=== PATIENT | male | born 1935 | race Caucasian/White ===

== ENCOUNTER 2023-10-25 05:30 | Day surgery (SDC) | payer OTHER ==
[2023-10-19 15:09] LABS: URINE APPEARANCE Clear; URINE BILIRRUBIN Negative (NEGATIVE); URINE BLOOD Small; URINE COLOR Yellow; URINE GLUCOSE Negative (NEGATIVE); URINE LEUKOCYTE Negative; URINE NITRATE Negative; URINE PROTEIN Negative (NEGATIVE); URINE UROBILINOGEN 0.2 E.U./dl
[2023-10-19 15:10] LABS: URINE BACTERIA 37.7 uL (0.0-1933); URINE EPITHELIAL CELLS 5.8 uL (0.0-38.8); URINE RBC 13.2 uL (0.0-20.8); URINE WBC 12.3 uL (0.0-23.2)
[~2023-10-25] VITALS: Ht 172.7 cm; Wt 86.2 kg
[~2023-10-25 05:30] MED LIST: ATORVASTATIN CA10 MG PO; CLONAZEPAM1 MG; CYMBALTA20 MG; LASIX20 MG PO; LOTREL; LOTREL 10-20 M1 EACH PO; PANTOPRAZOLE SO40 MG PO; PROSCAR5 MG PO; TAMS0.4C PO
[2023-10-25] MEDS ORDERED: GENTAMICIN SULFATE 40 MG/ML VIAL IV ONE (09:15)
== END 2023-10-25 13:10 | disposition home or self-care (01) ==
LOC: CIR.AMB 05:30
PROVIDERS: ATTEND Urology
DX: C67.9 Malignant neoplasm of bladder, unspecified (principal); Z88.5 Allergy status to narcotic agent; I10 Essential (primary) hypertension

== ENCOUNTER 2023-10-25 17:41 | Inpatient (IN) | payer OTHER ==
[~2023-10-25] VITALS: Ht 172.7 cm; Wt 86.2 kg
--- NOTE | 2023-10-25 18:26 | NUR ---
PTE ALERTA Y ORIENTADO X3 EL CUAL AL MOMENTO SE ENCUENTRA EN COMPANIA DE FAMILIAR LOS CUALES REFIERE QUE PTE FUE OPERADO EN EL MELONIE DE HOY DE ARABELLA REMOCION DE TUMORES MALIGNOS EN VEGIGA. AL MOMENTO PTE REFIERE TENER MUCHO DOLOR Y SE ENUENTRA CON LEG BAG. AL MOMENTO FAMILIARES REFIEREN QUE DR. ALVAREZ HAMMOND LO ESTA ESPERANDO.
[2023-10-25] MEDS ORDERED: CEFTRIAXONE SODIUM 2,000 MG in 0.9 % SODIUM CHLORIDE 100 ML IV SCH (19:01)
[2023-10-25] MEDS ORDERED: FAMOTIDINE/PF 20 MG in 0.9 % SODIUM CHLORIDE 8 ML IV PUSH SCH (19:01)
[2023-10-25] MEDS ORDERED: ONDANSETRON HCL 4 MG in 0.9 % SODIUM CHLORIDE 50 ML IV PRN (19:15)
[2023-10-25] MEDS ORDERED: 0.9 % SODIUM CHLORIDE 1,000 ML IV SCH (19:15)
[2023-10-25] MEDS ORDERED: ACETAMINOPHEN 500 MG GEL..CAP PO PRN (19:15)
[2023-10-25] MEDS ORDERED: ENALAPRILAT DIHYDRATE 1.25 MG/ML VIAL IV PRN (19:15)
--- NOTE | 2023-10-25 19:16 | NUR ---
SE TOMMAN MUESTRAS DE LAB Y SE CANALIZA BAJO MEDIDAS ASEPTICAS
[2023-10-25 19:22] LABS: HEMATOCRIT 42.1 % (39.0-48.0); HEMOGLOBIN 13.9 g/dL (13-16.00); MEAN CELL VOLUME 86.3 fL (80.0-100.00); MEAN CORPUSCULAR HEMOGLOBIN 28.4 pg (27.00-32.0); MEAN CORPUSCULAR HGB CONC 32.9 g/dl (32.0-36.0); PLATELET COUNT 215 K/uL (150-450); RED BLOOD COUNT 4.88 M/uL (4.00-6.00); RED CELL DISTRIBUTION WIDTH 14.7 % (11.5-14.5)
[2023-10-25 19:37] LABS: ERYTHROCYTE SEDIMENTATION RATE 32 mm/hr
[2023-10-25 19:43] LABS: BILIRUBIN TOTAL 1.35 mg/dL (0.3-1.2); CALCIUM 8.9 mg/dL (8.5-10.1); CREATININE SERUM 2.1 mg/dL (0.70-1.30); GFR 29.89; POTASSIUM 4.34 mEq/L (3.5-5.1)
[2023-10-25 20:03] LABS: INR 1.17; PROTHROMBIN TIME 12.1 SECONDS (9.0-11.5)
[2023-10-25 21:25] LABS: URINE APPEARANCE Turbid; URINE BILIRRUBIN Small (NEGATIVE); URINE BLOOD Moderate; URINE GLUCOSE Negative (NEGATIVE); URINE LEUKOCYTE Moderate; URINE NITRATE Positive; URINE UROBILINOGEN 0.2 E.U./dl
[2023-10-25 21:28] LABS: URINE BACTERIA 12.5 uL (0.0-1933); URINE EPITHELIAL CELLS 6.1 uL (0.0-38.8); URINE RBC 1628.2 uL (0.0-20.8); URINE WBC 4.7 uL (0.0-23.2)
[2023-10-25 21:49] LABS: URINE CRYSTALS MODERATE /HPF; URINE PROTEIN 100 (NEGATIVE)
[2023-10-25 21:50] LABS: URINE COLOR DK YELLOW
[2023-10-26] MEDS ORDERED: AMLODIPINE BESYLATE 10 MG TABLET PO SCH (09:00)
[2023-10-26] MEDS ORDERED: FUROsemide 20 MG/2 ML VIAL IV SCH (09:00)
[2023-10-26] MEDS ORDERED: TAMSULOSIN HCL 0.4 MG CAP PO SCH (09:00)
[2023-10-26] MEDS ORDERED: OXYBUTYNIN CHLORIDE 5 MG TABLET PO SCH (17:00)
[2023-10-26] MEDS ORDERED: LACTULOSE 20 G/30 ML BLIST.PACK PO NR (19:45)
[2023-10-26] MEDS ORDERED: DOCUSATE CALCIUM 240 MG CAPSULE PO SCH (21:00)
[2023-10-27] MEDS ORDERED: 0.9 % SODIUM CHLORIDE 250 ML IV SCH (08:00)
[2023-10-27] MEDS ORDERED: FAMOTIDINE/PF 20 MG/2 ML VIAL ONE (08:06)
[2023-10-27] MEDS ORDERED: FUROsemide 20 MG TABLET PO SCH (09:00)
[2023-10-27 11:08] LABS: HEMATOCRIT 36.3 % (39.0-48.0); MEAN CELL VOLUME 86.7 fL (80.0-100.00); MEAN CORPUSCULAR HEMOGLOBIN 28.7 pg (27.00-32.0); MEAN CORPUSCULAR HGB CONC 33.1 g/dl (32.0-36.0); PLATELET COUNT 142 K/uL (150-450); RED BLOOD COUNT 4.19 M/uL (4.00-6.00); RED CELL DISTRIBUTION WIDTH 14.4 % (11.5-14.5)
[2023-10-27 12:13] LABS: ALBUMIN 2.4 gm/dL (3.4-5.0); CALCIUM 7.7 mg/dL (8.5-10.1); CREATININE SERUM 1.45 mg/dL (0.70-1.30); GFR 45.82; POTASSIUM 4.17 mEq/L (3.5-5.1)
[2023-10-27 12:27] LABS: PHOSPHOROUS 1.8 mg/dL (2.5-4.9)
[2023-10-27] MEDS ORDERED: NAPH,MB-DB/K PH,MBDB 1 PKT PACKET PO SCH (17:00)
[2023-10-28 12:37] LABS: MEAN CELL VOLUME 86.5 fL (80.0-100.00); MEAN CORPUSCULAR HEMOGLOBIN 28.8 pg (27.00-32.0); MEAN CORPUSCULAR HGB CONC 33.3 g/dl (32.0-36.0); PLATELET COUNT 140 K/uL (150-450); RED BLOOD COUNT 4.16 M/uL (4.00-6.00); RED CELL DISTRIBUTION WIDTH 14.7 % (11.5-14.5)
[2023-10-28 13:06] LABS: ALBUMIN 2.3 gm/dL (3.4-5.0); BILIRUBIN TOTAL 0.89 mg/dL (0.3-1.2); CALCIUM 8.1 mg/dL (8.5-10.1); CREATININE SERUM 1.07 mg/dL (0.70-1.30); GFR 65.07; GLOBULINA 3.3 G/DL (2.4-3.5); POTASSIUM 3.93 mEq/L (3.5-5.1); TOTAL PROTEIN 5.6 gm/dL (6.4-8.2)
[2023-10-28] MEDS ORDERED: FUROsemide 40 MG/4 ML VIAL IV NR (13:31)
[2023-10-28] MEDS ORDERED: AMLODIPINE BESYLATE 10 MG TABLET PO SCH (13:32)
[2023-10-28] MEDS ORDERED: hydrALAZINE HCL 20 MG VIAL IV PRN (16:15)
[2023-10-29 07:31] LABS: ALBUMIN 2.4 gm/dL (3.4-5.0); BILIRUBIN TOTAL 1.33 mg/dL (0.3-1.2); CALCIUM 8.4 mg/dL (8.5-10.1); CREATININE SERUM 0.99 mg/dL (0.70-1.30); GFR 71.18; GLOBULINA 3.4 G/DL (2.4-3.5); PHOSPHOROUS 2.2 mg/dL (2.5-4.9); POTASSIUM 4.27 mEq/L (3.5-5.1); TOTAL PROTEIN 5.8 gm/dL (6.4-8.2)
[2023-10-29] MEDS ORDERED: AMLODIPINE BESYLATE 5 MG TABLET PO SCH (09:00)
== END 2023-10-29 11:11 | disposition home or self-care (01) | DRG 863 ==
LOC: ER 17:41 → MEDJ 20:06
PROVIDERS: General Practice; Internal Medicine Nephrology; Student in an Organized Health Care Education/Training Program; ADMIT Internal Medicine; ATTEND Internal Medicine
PROC: BT43ZZZ Ultrasonography of Bilateral Kidneys (ICD-10-PCS; principal; 2023-10-26)
DX: T81.44XA Sepsis following a procedure, initial encounter (principal); N39.0 Urinary tract infection, site not specified; N17.9 Acute kidney failure, unspecified; T83.84XA Pain due to genitourinary prosthetic devices, implants and grafts, initial encounter; I12.9 Hypertensive chronic kidney disease with stage 1 through stage 4 chronic kidney disease, or unspecified chronic kidney disease; N18.9 Chronic kidney disease, unspecified; Y73.1 Therapeutic (nonsurgical) and rehabilitative gastroenterology and urology devices associated with adverse incidents

== ENCOUNTER 2024-05-01 10:22 | Emergency (ER) | payer OTHER ==
[~2024-05-01] VITALS: Ht 172.7 cm; Wt 86.2 kg
[2024-05-01] MEDS ORDERED: AMOX1TAB5 PO (10:31)
[2024-05-01] MEDS ORDERED: GUAIFENESIN/DEXTROMETHORPHAN 10ML BLIST.PACK PO ONE ×2 (12:30→12:31)
[2024-05-01 12:59] LABS: HEMATOCRIT 43.1 % (39.0-48.0); HEMOGLOBIN 14.3 g/dL (13-16.00); MEAN CELL VOLUME 86.8 fL (80.0-100.00); MEAN CORPUSCULAR HEMOGLOBIN 28.9 pg (27.00-32.0); MEAN CORPUSCULAR HGB CONC 33.3 g/dl (32.0-36.0); RED BLOOD COUNT 4.96 M/uL (4.00-6.00); RED CELL DISTRIBUTION WIDTH 15.3 % (11.5-14.5)
[2024-05-01 13:30] LABS: PLATELET COUNT 184 K/uL (150-450)
[2024-05-01 13:50] LABS: URINE APPEARANCE Clear; URINE BILIRRUBIN Negative (NEGATIVE); URINE BLOOD Negative; URINE COLOR Dark Yellow; URINE GLUCOSE Negative (NEGATIVE); URINE KETONE Trace (NEGATIVE); URINE LEUKOCYTE Negative; URINE NITRATE Negative; URINE UROBILINOGEN 0.2 E.U./dl
[2024-05-01 13:51] LABS: URINE BACTERIA 69.7 uL (0.0-1933); URINE CAST 3.82 uL (0.0-1.40); URINE EPITHELIAL CELLS 33.3 uL (0.0-38.8); URINE WBC 29.7 uL (0.0-23.2)
[2024-05-01 13:59] LABS: URINE PROTEIN 100 (NEGATIVE); URINE RBC 1.4 uL (0.0-20.8)
[2024-05-01 14:23] LABS: CALCIUM 9.1 mg/dL (8.5-10.1); CREATININE SERUM 1.64 mg/dL (0.70-1.30); GFR 39.75
[2024-05-01 14:33] LABS: POTASSIUM 4.21 mEq/L (3.5-5.1)
== END 2024-05-01 16:40 | disposition home or self-care (01) ==
LOC: ER 10:24
PROVIDERS: Emergency Medicine
DX: R53.81 Other malaise (principal); Z20.822 Contact with and (suspected) exposure to COVID-19; Z88.5 Allergy status to narcotic agent